=== PATIENT | female | born 1970 | race Caucasian/White ===

== ENCOUNTER 2016-08-30 19:39 | Emergency (ER) | payer MEDICAID ==
[~2016-08-30] VITALS: Ht 157.5 cm; Wt 102.0 kg
[~2016-08-30 19:39] MED LIST: ALBU8.5H5 IH; CYCL-319 PO; GUAI118L94 PO; ULT50 PO
[2016-08-30 19:43] VITALS: Ht 157.5 cm; Wt 102.0 kg
[2016-08-30] MEDS ORDERED: SOD CHLORIDE 0.9% 1,000 ML IV STA (21:18)
[2016-08-30] MEDS ORDERED: KETOROLAC 30 MG INJ IV STA (21:18)
[2016-08-30] MEDS ORDERED: ONDANSETRON 4 MG INJ IV STA (21:18)
[2016-08-30] MEDS ORDERED: OSELTAMIVIR 75 MG CAP PO ONE (21:30)
--- NOTE | 2016-08-30 21:52 | ERD ---
ER Documentation Chief Complaint Date/Time DATE: 08/30/16 TIME: 21:49 Chief Complaint vomiting x 2 hours. also c/o fever/headache HPI 46-year-old female who presents with family members. The patient has a history of diabetes. The patient presents with flulike symptoms over the past 24-48 hours. She describes some dry nonproductive cough, diffuse myalgias, gradual onset of frontal, bandlike headache with associated nausea, vomiting 2 that has been nonbloody nonbilious. She denies any significant abdominal pain, no chest pain, no difficult shortness of breath. She denies any rash or neck stiffness, no difficulty ranging her neck from side to side. The patient has not taken anything for the pain or fever prior to arrival. ROS All systems reviewed and are negative except as per history of present illness. Medications Home Meds Active Scripts Oseltamivir Phosphate* (Tamiflu*) 75 Mg Capsule, 75 MG PO BID for 5 Days, CAP Prov:JUSTIN VENTURA MD 08/30/16 Ondansetron (Ondansetron Odt) 4 Mg Tab.rapdis, 4 MG PO Q6H Y for NAUSEA AND/OR VOMITING, #20 TAB Prov:JUSTIN VENTURA MD 08/30/16 Ibuprofen* (Motrin*) 800 Mg Tab, 800 MG PO Q6H Y for PAIN AND OR ELEVATED TEMP, #30 TAB Prov:JUSTIN VENTURA MD 08/30/16 Discontinued Scripts Tramadol HCl (Tramadol HCl) 50 Mg Tablet, 25 MG PO Q4 Y for PAIN, #20 TAB Prov:ROLAND OMER I. GEOGRAPHIC ANALYST 12/06/15 Cyclobenzaprine Hcl* (Cyclobenzaprine Hcl*) 10 Mg Tablet, 10 MG PO TID, #15 TAB Prov:ROLAND OMER I. GEOGRAPHIC ANALYST 12/06/15 Guaifenesin-Codeine Phosphate* (Guaifenesin* with Codeine Liq) 120 Ml Liquid, 5 ML PO Q4H for COUGH, #60 ML Prov:DEJAN DOBBINS NP 04/19/15 Albuterol Sulfate* (Albuterol Sulfate* HFA) 8.5 Gm Hfa.aer.ad, 2 PUFF IH Q4H Y for WHEEZING AND SOB, #1 EA Prov:CUISIADEJAN NP 04/19/15 Allergies Allergies: Coded Allergies: No Known Allergy (Unverified , 08/30/16) PMhx/Soc History of Surgery: Yes (cesarian, gallbladder) Anesthesia Reaction: No Hx Neurological Disorder: No Hx Respiratory Disorders: Yes (ASTHMA) Hx Cardiac Disorders: Yes (HTN) Hx Psychiatric Problems: No Hx Miscellaneous Medical Probl: Yes (DM11) Hx Alcohol Use: No Hx Substance Use: No Hx Tobacco Use: No FmHx Family History: diabetes Physical Exam Vitals Vital Signs Date Time Temp Pulse Resp B/P Pulse Ox O2 Delivery O2 Flow Rate FiO2 08/30/16 22:12 99.1 97 16 152/81 95 Room Air 08/30/16 19:43 101.2 133 20 144/96 94 Physical Exam General: Well developed, well nourished, no acute distress Head: Normocephalic, atraumatic. Eyes: Pupils equally reactive, EOM intact ENT: Moist mucous membranes Neck: Supple, no lymphadenopathy, no meningismus with full active and passive range of motion of the neck from side to side Respiratory: Lungs clear bilaterally, no distress Cardiovascular: RRR, no murmurs, rubs, or gallops Abdominal: Soft, non-tender, non-distended, no peritoneal signs, negative Gomez sign, no tenderness to McBurney's point, no CVA tenderness : Deferred MSK: No edema, no unilateral swelling, 5/5 strength Neurologic: Alert and oriented, moving all extremities, normal speech, no focal weakness, no cerebellar signs, no meningismus Skin: No rash Psych: Normal mood Results 24 hrs Current Medications Medications (Trade) Dose Ordered Sig/Sherri Route PRN Reason Start Time Stop Time Status Last Admin Dose Admin Sodium Chloride (NS) 1,000 ml @ 1,000 mls/hr Q1H STAT IV 08/30/16 21:18 08/30/16 22:17 DC 08/30/16 21:32 Ondansetron HCl (Zofran Inj) 4 mg ONCE STAT IV 08/30/16 21:18 08/30/16 21:19 DC 08/30/16 21:32 Ketorolac Tromethamine (Toradol) 30 mg ONCE STAT IV 08/30/16 21:18 08/30/16 21:19 DC 08/30/16 21:32 Oseltamivir Phosphate (Tamiflu) 75 mg ONCE ONCE PO 08/30/16 21:30 08/30/16 21:31 DC 08/30/16 21:32 Procedures/MDM The patient's clinical presentation is very consistent with an acute viral syndrome. The patient describes myalgias, headache, nausea, cough. Her symptoms are very consistent with flulike symptoms. Given that the patient is a diabetic she meets criteria for Tamiflu initiation. First dose of Tamiflu will be provided. While the patient does have a headache she is otherwise extremely well- appearing with better alternative diagnosis. She has no meningismus and is able to turn her head from side to side without difficulty she is able to get up and move about the room without significant difficulty. I do not believe this is consistent with meningitis or more serious etiology. I do not believe that the patient requires laboratory testing, lumbar puncture or further investigation at this time. I did however discuss return precautions for worsening symptoms, rash or signs of meningitis. The family states understanding. The patient's daughter was acting as education spec during the patient's ER course The patient does not exhibit any clinical signs or symptoms concerning for serious bacterial infection or systemic illness. Based on history and clinical exam findings the patient does not appear to have evidence of pneumonia, strep pharyngitis, urinary tract infection, bacteremia, sepsis, or meningitis. For these reasons I do not believe it is necessary to obtain laboratory testing or diagnostic imaging. I believe it would be appropriate for symptom control, and close outpatient primary care follow-up. The patient was given IV fluids nausea medication and antipyretic. The patient had improved symptoms and is feeling much better. Her vital signs also improved. The patient is safe for discharge. First dose of Tamiflu provided. We discussed follow up with the patient's primary care doctor within 24 to 48 hours as needed. We also discussed return to the emergency room for worsening symptoms or worsening condition. Discharge Medications: Tamiflu, Motrin, Zofran Departure Diagnosis: Primary Impression: Influenza Condition: Good JUSTIN VENTURA MD Aug 30, 2016 21:52
[2016-08-30 22:12] VITALS: BP 152/81; PULSE 97; RESP 16; TEMP 99.1
[2016-08-30] MEDS ORDERED: OSLT75C PO (22:17)
[2016-08-30] MEDS ORDERED: ONDA4TAB14 PO (22:17)
[2016-08-30] MEDS ORDERED: IBUP800T25 PO (22:17)
== END 2016-08-30 22:28 | disposition home or self-care (01) ==
LOC: E/R 19:39
DX: B34.9 Viral infection, unspecified (principal); E11.9 Type 2 diabetes mellitus without complications; J45.909 Unspecified asthma, uncomplicated; I10 Essential (primary) hypertension; R11.2 Nausea with vomiting, unspecified; R51 Headache; M79.1 Myalgia; R05 Cough
CPT/HCPCS: 96374; 96375; J1885; J2405; J7030; Z7502; Z7610

== ENCOUNTER 2017-07-09 11:03 | Emergency (ER) | payer MEDICAID ==
[~2017-07-09] VITALS: Ht 167.6 cm; Wt 75.1 kg
[~2017-07-09 11:03] MED LIST changes: -ALBU8.5H5 IH; -CYCL-319 PO; -GUAI118L94 PO; +IBUP800T25 PO; +ONDA4TAB14 PO; +OSLT75C PO; -ULT50 PO
[2017-07-09 11:15] VITALS: Ht 167.6 cm; Wt 75.1 kg
[2017-07-09] MEDS ORDERED: NAPR-260 PO (12:27)
--- NOTE | 2017-07-09 12:30 | ERD ---
ER Documentation Chief Complaint Chief Complaint MECHANICAL FALL NOW FOOT HURTS AND SHOULDER WELL HPI 47-year-old female complaining of right shoulder pain and left ankle pain after a fall days ago. Patient states he was mechanical fall. No loss of consciousness. Has not taken medications for symptoms. Denies numbness or tingling. Has pain with ambulation. ROS All systems reviewed and are negative except as per history of present illness. Medications Home Meds Active Scripts Naproxen* (Naprosyn*) 500 Mg Tablet, 500 MG PO BID Y for PAIN AND/OR INFLAMMATION, #30 TAB Prov:ZACH PATEL PA-C 07/09/17 Oseltamivir Phosphate* (Tamiflu*) 75 Mg Capsule, 75 MG PO BID for 5 Days, CAP Prov:JUSTIN VENTURA MD 08/30/16 Ondansetron (Ondansetron Odt) 4 Mg Tab.rapdis, 4 MG PO Q6H Y for NAUSEA AND/OR VOMITING, #20 TAB Prov:JUSTIN VENTURA MD 08/30/16 Ibuprofen* (Motrin*) 800 Mg Tab, 800 MG PO Q6H Y for PAIN AND OR ELEVATED TEMP, #30 TAB Prov:JUSTIN VENTURA MD 08/30/16 Allergies Allergies: Coded Allergies: No Known Allergy (Unverified , 07/09/17) PMhx/Soc History of Surgery: Yes (cesarian, gallbladder) Anesthesia Reaction: No Hx Neurological Disorder: No Hx Respiratory Disorders: Yes (ASTHMA) Hx Cardiac Disorders: Yes (HTN) Hx Psychiatric Problems: No Hx Miscellaneous Medical Probl: Yes (DM11) Hx Alcohol Use: No Hx Substance Use: No Hx Tobacco Use: No Smoking Status: Never smoker Physical Exam Vitals Vital Signs Date Time Temp Pulse Resp B/P Pulse Ox O2 Delivery O2 Flow Rate FiO2 07/09/17 11:15 98.4 93 18 165/79 97 Physical Exam GENERAL: The patient is well-appearing, well-nourished, in no acute distress CHEST: Clear to auscultation bilaterally. There are no rales, wheezes or rhonchi. HEART: Regular rate and rhythm. No murmurs, clicks, rubs or gallops. No S3 or S4. ABDOMEN:Soft, nontender and nondistended. Good bowel sounds. No rebound or guarding. No gross peritonitis. No gross organomegaly or masses. No Gomez sign or McBurney point tenderness. BACK: No midline or flank tenderness. EXTREMITIES: Tender to palpation of the left foot. No ankle tenderness. Normal range of motion. No obvious deformities. Strength 5 out of 5. Tenderness palpation of the left shoulder. No deformity of the clavicle. Mild limited range of motion secondary to pain. No deformities. Strength 5 out of 5. Skeletally intact bilateral upper and lower extremities per NEUROLOGIC: Alert and oriented. Cranial nerves II through XII intact. Motor strength in all 4 extremities with 5 out of 5 strength. Sensation grossly intact. Normal speech and gait. Babinski negative. DTR 2+ throughout. SKIN: There is no apparent rash or petechiae. The skin is warm and dry. Procedures/MDM DIAGNOSTIC IMAGING REPORT Patient: KERRY BLACKMON : 1970 Age: 47 Sex: F MR #: [id number] DOS: 07/09/17 1158 Ordering MD: WM PATEL PA-C Location: [facility] Room/Bed: PROCEDURE: XR Left Foot. CLINICAL INDICATION: Left foot pain. TECHNIQUE: AP, oblique and lateral views of the left foot was obtained. The images were reviewed on a PACS workstation. COMPARISON: None. FINDINGS: A large spur is noted off the plantar surface of the left os calcaneus. There is a smaller spur off the dorsal surface of the left os calcaneus. The other bony elements and joint spaces are normal. The distal end of a marker projects over the dorsal surface of the mid left foot. No underlying abnormality is identified. IMPRESSION: 1. Large plantar spur of the left os calcaneus. Small plantar spur dorsal surface left os calcaneus. DIAGNOSTIC IMAGING REPORT Patient: KERRY BLACKMON : 1970 Age: 47 Sex: F MR #: [id number] DOS: 07/09/17 1158 Ordering MD: WM PATEL PA-C Location: [facility] Room/Bed: PROCEDURE: XR right Shoulder. CLINICAL INDICATION: Right shoulder pain TECHNIQUE: 3 views of the right shoulder are available for review. COMPARISON: None available FINDINGS: There is no acute fracture. Alignment is normal. Joint spaces are preserved. There are enthesopathic changes at the greater tuberosity. The visualized right lung is clear. IMPRESSION: 1. No radiographic evidence of acute osseous abnormality. MDM: 47-year-old female complaining of shoulder pain and ankle pain. I have low suspicion for acute fracture dislocation. Patient's exam is non-concerning and patient images are within normal limits. I have low suspicion for neurodeficit. Patient's exams are not concerning. Patient likely has contusions or strain secondary to mechanism however do not feel there is indication for splinting at this time. Patient is discharged with strict ER precautions and pain medication. Patient is told symptoms change or worsen to return to ER. All questions answered at discharge. Departure Condition: Stable Patient Instructions: Fall, Mechanical Referrals: [facility] YOU HAVE RECEIVED A MEDICAL SCREENING EXAM AND THE RESULTS INDICATE THAT YOU DO NOT HAVE A CONDITION THAT REQUIRES URGENT TREATMENT IN THE EMERGENCY DEPARTMENT. FURTHER EVALUATION AND TREATMENT OF YOUR CONDITION CAN WAIT UNTIL YOU ARE SEEN IN YOUR DOCTORS OFFICE WITHIN THE NEXT 1-2 DAYS. IT IS YOUR RESPONSIBILITY TO MAKE AN APPOINTMENT FOR FOLOW-UP CARE. IF YOU HAVE A PRIMARY DOCTOR --you should call your primary doctor and schedule an appointment IF YOU DO NOT HAVE A PRIMARY DOCTOR YOU CAN CALL OUR PHYSICIAN REFERRAL HOTLINE AT IF YOU CAN NOT AFFORD TO SEE A PHYSICIAN YOU CAN CHOSE FROM THE FOLLOWING FORMERLY [facility] [address]. [facility] [address] [facility] [address] [facility] [address] [facility] [address] [facility]. [facility] [address] Additional Instructions: FOLLOW UP WITH YOUR PRIMARY CARE PHYSICIAN TOMORROW.Return to this facility if you are not improving as expected. ZACH PATEL PA-C Jul 09, 2017 12:30
--- NOTE | 2017-07-09 12:43 | RADRPT ---
PROCEDURE: XR right Shoulder. CLINICAL INDICATION: Right shoulder pain TECHNIQUE: 3 views of the right shoulder are available for review. COMPARISON: None available FINDINGS: There is no acute fracture. Alignment is normal. Joint spaces are preserved. There are enthesopathic changes at the greater tuberosity. The visualized right lung is clear. IMPRESSION: 1. No radiographic evidence of acute osseous abnormality. RPTAT: UU .Javier Desir MD, MD Date Time Electronically viewed and signed by .Javier Desir MD, on 07/09/2017 12:43 .K/
--- NOTE | 2017-07-09 13:01 | RADRPT ---
PROCEDURE: XR Left Foot. CLINICAL INDICATION: Left foot pain. TECHNIQUE: AP, oblique and lateral views of the left foot was obtained. The images were reviewed on a PACS workstation. COMPARISON: None. FINDINGS: A large spur is noted off the plantar surface of the left os calcaneus. There is a smaller spur off the dorsal surface of the left os calcaneus. The other bony elements and joint spaces are normal. The distal end of a marker projects over the dorsal surface of the mid left foot. No underlying abno rmality is identified. IMPRESSION: 1. Large plantar spur of the left os calcaneus. Small plantar spur dorsal surface left os calcaneus. RPTAT:AAJJ Physician Rafia Date Time Electronically viewed and signed by Ady Santos Physician on 07/09/2017 13:00 BUCKY/
== END 2017-07-09 13:26 | disposition home or self-care (01) ==
LOC: FTE 11:03
DX: M25.511 Pain in right shoulder (principal); M25.572 Pain in left ankle and joints of left foot; E11.9 Type 2 diabetes mellitus without complications; I10 Essential (primary) hypertension; J45.909 Unspecified asthma, uncomplicated